=== PATIENT | female | born 1930 | race Caucasian/White ===

== ENCOUNTER 2017-10-30 18:25 | Inpatient (IN) | payer MEDICARE ==
[2017-10-30] VITALS (8 sets, daily range): BP systolic 121–161; BP diastolic 50–118; PULSE 56–64; RESP 22–30; TEMP 98.3–100.2; O2SAT 95–98
[~2017-10-30] VITALS: Ht 162.6 cm; Wt 58.0 kg
[~2017-10-30 18:25] MED LIST: ATEN-102 PO; CYAN1000P IM; FURO20TA PO; GLIM1TAB PO; HYDR-3580 PO; LOVA1TAB47 PO; MULTCAP2 PO; OMEG100037 PO; PLAV75TA PO; RANI150 PO; RIVA10 PO; TEMA15CA PO; VITA20003 PO; Z.0.COMMODE-3:1; Z.0.CPM; Z.0.WALKERFRONT
--- NOTE | 2017-10-30 18:33 | PD ---
HPI Chief Complaint: Respiratory Distress Time Seen by Provider: 18:30 Travel History International Travel<30 days: No Contact w/Intl Traveler<30days: No Traveled to known affect area: No History of Present Illness HPI 87-year-old female came to the emergency room brought in by EMS emergently for respiratory distress. Patient has been sick for couple days. Today they found her laying in her bed and oxygen saturation in low 80s. Patient initially refused to come in but they put her on a BiPAP which improved the oxygen saturation to mid 90s and patient was willing to come at that point. Patient denies of any chest pain. Denies of any coronary artery disease history or cardiac history. Upon arrival she was saturating 93% on the BiPAP by EMS. Patient was awake and once BiPAP was taken out to switch to the hospital BiPAP she was talking and answering questions. Rectal temperature is 100.2. PFSH Past Medical History Narrative Medical List of her past medical, surgical, social and family history reviewed from the nursing note. Hx Anticoagulant Therapy: Yes (PLAVIX) Arthritis: Yes (left hand and left knee) Cancer: No Cardiovascular Problems: Yes (BLOOD CLOT IN RIGHT SHOULDER 2013) High Cholesterol: Yes Cerebrovascular Accident: Yes Coronary Artery Disease: Yes Diabetes: Yes Diminished Hearing: No Endocrine: Yes Gastrointestinal Disorders: Yes GERD: Yes Genitourinary: Yes (ARF ) Hepatitis: No Hiatal Hernia: No Hypertension: Yes Immune Disorder: No Musculoskeletal: Yes (ARTHRITIS) Neurologic: Yes (STROKE 1997) Psychiatric: No Reproductive: No Respiratory: Yes (COPD) Immunizations Current: Yes Thyroid Disease: No Ovarian Cysts: Yes Past Surgical History Abdominal Surgery: No AICD: No Body Medical Devices: TEETH IMPLANTS Cardiac Surgery: Yes (ENDARTERECTOMY) Cholecystectomy: Yes Ear Surgery: No Endocrine Surgery: No Eye Surgery: Yes (CATARACT SX RIGHT EYE) Genitourinary Surgery: Yes (BLADDER SUSPENSION) Gynecologic Surgery: No Joint Replacement: No Oral Surgery: No Pacemaker: No Thoracic Surgery: No Other Surgery: Yes (ANGIOGRAHM) Social History Alcohol Use: Yes (2-3 VODKA DRINKS DAILY) Tobacco Use: Yes Substance Use: No Allergies-Medications (Allergen,Severity, Reaction): Coded Allergies: ciprofloxacin (Unverified Allergy, Severe, SEVERE VAGINAL INFECTION, ) diatrizoate meglumine (Unverified Allergy, Severe, KIDNEY FAILURE, 10/30/17) gadobenic acid (Unverified Allergy, Severe, KIDNEY FAILURE, 10/30/17) gadodiamide (Unverified Allergy, Severe, KIDNEY FAILURE, 10/30/17) gadoteridol (Unverified Allergy, Severe, KIDNEY FAILURE, 10/30/17) iodixanol (Unverified Allergy, Severe, KIDNEY FAILURE, 10/30/17) iohexol (Unverified Allergy, Severe, KIDNEY FAILURE, 10/30/17) cephalexin (Unverified Adverse Reaction, Severe, VAGINAL INFECTION, 10/30/17 ) Comments List of her allergies reviewed from the nursing note. Reported Meds & Prescriptions Reported Meds & Active Scripts Active Narrative Medication List of her home medications reviewed from the nursing note. Review of Systems Except as stated in HPI: all other systems reviewed are Neg Respiratory: Positive: Shortness of Breath Physical Exam Narrative GENERAL: Awake, alert, moderate distress, elderly and frail SKIN: Focused skin assessment warm/dry. HEAD: Atraumatic. Normocephalic. EYES: Pupils equal and round. No scleral icterus. No injection or drainage. ENT: No nasal bleeding or discharge. Mucous membranes pink and moist. NECK: Trachea midline. No JVD. CARDIOVASCULAR: Regular rate and rhythm. No murmur appreciated. RESPIRATORY: Respiratory distress with bilateral crackles all the way up to the apex GASTROINTESTINAL: Abdomen soft, non-tender, nondistended. Hepatic and splenic margins not palpable. MUSCULOSKELETAL: No obvious deformities. No clubbing. No cyanosis. No edema. NEUROLOGICAL: Awake and alert. No obvious cranial nerve deficits. Motor grossly within normal limits. Normal speech. PSYCHIATRIC: Appropriate mood and affect; insight and judgment normal. Data Data Last Documented VS Vital Signs Date Time Temp Pulse Resp B/P (MAP) Pulse Ox O2 Delivery O2 Flow Rate FiO2 10/30/17 20:00 60 27 127/50 (75) 10/30/17 19:30 98 40 10/30/17 18:40 100.2 CPAP Orders Orders Complete Blood Count With Diff (10/30/17 18:31) Comprehensive Metabolic Panel (10/30/17 18:31) B-Type Natriuretic Peptide (10/30/17 18:31) Prothrombin Time / Inr (Pt) (10/30/17 18:31) Magnesium (Mg) (10/30/17 18:31) Troponin I (10/30/17 18:31) Urinalysis - C+S If Indicated (10/30/17 18:31) Blood Culture (10/30/17 18:31) Iv Access Insert/Monitor (10/30/17 18:31) Electrocardiogram (10/30/17 18:31) Ecg Monitoring (10/30/17 18:31) Oximetry (10/30/17 18:31) Oxygen Administration (10/30/17 18:31) Chest, Single Ap (10/30/17 18:31) Sodium Chloride 0.9% Flush (Ns Flush) (10/30/17 18:45) Resp Bipap / Cpap Non Invas Vt (10/30/17 18:31) Lactic Acid Sepsis Protocol (10/30/17 18:39) Sodium Chlor 0.9% 1000 Ml Inj (Ns 1000 M (10/30/17 19:00) ^ Straight Catheter (10/30/17 18:47) Piperacil-Tazo 4.5 Gm Premix (Zosyn 4.5 (10/30/17 19:00) Vancomycin Inj (Vancomycin Inj) (10/30/17 19:00) Urine Culture (10/30/17 18:50) Admit Order (Ed Use Only) (10/30/17 ) Labs Laboratory Tests Test 10/30/17 18:37 10/30/17 18:50 White Blood Count 12.4 TH/MM3 Red Blood Count 3.87 MIL/MM3 Hemoglobin 13.4 GM/DL Hematocrit 40.3 % Mean Corpuscular Volume 104.1 FL Mean Corpuscular Hemoglobin 34.7 PG Mean Corpuscular Hemoglobin Concent 33.3 % Red Cell Distribution Width 13.3 % Platelet Count 223 TH/MM3 Mean Platelet Volume 8.9 FL Neutrophils (%) (Auto) 87.7 % Lymphocytes (%) (Auto) 3.4 % Monocytes (%) (Auto) 8.8 % Eosinophils (%) (Auto) 0.0 % Basophils (%) (Auto) 0.1 % Neutrophils # (Auto) 10.8 TH/MM3 Lymphocytes # (Auto) 0.4 TH/MM3 Monocytes # (Auto) 1.1 TH/MM3 Eosinophils # (Auto) 0.0 TH/MM3 Basophils # (Auto) 0.0 TH/MM3 CBC Comment DIFF FINAL Differential Comment Prothrombin Time 10.3 SEC Prothromb Time International Ratio 1.0 RATIO Blood Urea Nitrogen 61 MG/DL Creatinine 1.84 MG/DL Random Glucose 191 MG/DL Total Protein 7.0 GM/DL Albumin 2.4 GM/DL Calcium Level 9.2 MG/DL Magnesium Level 2.8 MG/DL Alkaline Phosphatase 119 U/L Aspartate Amino Transf (AST/SGOT) 13 U/L Alanine Aminotransferase (ALT/SGPT) 12 U/L Total Bilirubin 0.4 MG/DL Sodium Level 135 MEQ/L Potassium Level 5.0 MEQ/L Chloride Level 98 MEQ/L Carbon Dioxide Level 30.5 MEQ/L Anion Gap 7 MEQ/L Estimat Glomerular Filtration Rate 26 ML/MIN Lactic Acid Level 1.9 mmol/L Troponin I 0.04 NG/ML B-Type Natriuretic Peptide 2665 PG/ML Urine Color YELLOW Urine Turbidity HAZY Urine pH 5.5 Urine Specific [place] 1.023 Urine Protein 100 mg/dL Urine Glucose (UA) NEG mg/dL Urine Ketones NEG mg/dL Urine Occult Blood NEG Urine Nitrite NEG Urine Bilirubin NEG Urine Urobilinogen LESS THAN 2.0 MG/DL Urine Leukocyte Esterase NEG Urine RBC LESS THAN 1 /hpf Urine WBC 2 /hpf Urine Squamous Epithelial Cells 1 /hpf Urine Amorphous Sediment RARE Urine Bacteria OCC /hpf Urine Hyaline Casts 11 /lpf Urine Mucus FEW /lpf Microscopic Urinalysis Comment CATH-CULTURE IND MDM Medical Decision Making Medical Screen Exam Complete: Yes Emergency Medical Condition: Yes Medical Record Reviewed: Yes Interpretation(s) Twelve-lead EKG was reviewed by me. Normal sinus rhythm, motion artifacts, peaked T waves. Heart rate of 62 bpm. Differential Diagnosis Pneumonia, congestive heart failure, pulmonary edema Narrative Course 6:59 PM patient has been started on BiPAP again. Awaiting for blood test results and a chest x-ray. Given the rectal temperature I have ordered IV fluid bolus 1. I will give her a dose of Zosyn and vancomycin as well. He says been signed over to the oncoming ER physician. Critical Care Narrative Aggregate critical care time was 30 minutes. Time to perform other separately billable procedures was not included in the critical care time. My time did not include minutes spent treating any other patients simultaneously or on activities that did not directly contribute to the patient's treatment. The services I provided to this patient were to treat and/or prevent clinically significant deterioration that could result in: Respiratory distress, BiPAP, sepsis, sepsis protocol I provided critical care services requiring my management, as noted below: Chart data review, documentation time, medication orders and management, vital sign assessments/reviewing monitor data, ordering and reviewing lab tests, ordering and interpreting/reviewing x-rays and diagnostic studies, care of the patient and discussion of the patient with the admitting physicians. Procedures EKG Prior to Arrival: Yes Scripts [LORazepam INJ] 2 MG/ML INJ No Conflict Check 0.5 MG IV PUSH Q4H Y for agitation Prov: Cheikh Looney DO 10/31/17 Morphine Sulfate (Morphine Sulfate) 2 Mg/Ml Syringe 2 MG IV PUSH Q3H Y for pain 5-10 for 3 Days, SYRINGE Prov: Cheikh Looney DO 10/31/17 [place] Francois MD Oct 30, 2017 18:33
[2017-10-30] MEDS ORDERED: SODIUM CHLORIDE 0.9% FLUSH 10 ML FLUSH IVF PRN (18:45)
[2017-10-30 18:55] LABS: AUTOMATED NEUTROPHIL # 10.8 TH/MM3 (1.8-7.7); BASOPHIL % 0.1 % (0.0-2.0); HEMATOCRIT 40.3 % (35.0-46.0); HEMOGLOBIN 13.4 GM/DL (11.6-15.3); LYMPH % 3.4 % (9.0-44.0); LYMPHOCYTE # 0.4 TH/MM3 (1.0-4.8); MEAN CELL VOLUME 104.1 FL (80.0-100.0); MEAN CORPUSCULAR HEMOGLOBIN 34.7 PG (27.0-34.0); MEAN CORPUSCULAR HGB CONC 33.3 % (32.0-36.0); MEAN PLATELET VOLUME 8.9 FL (7.0-11.0); MONO % 8.8 % (0.0-8.0); MONOCYTE # 1.1 TH/MM3 (0-0.9); NEUT % 87.7 % (16.0-70.0); PLATELET COUNT 223 TH/MM3 (150-450); RED BLOOD COUNT 3.87 MIL/MM3 (4.00-5.30); RED CELL DISTRIBUTION WIDTH 13.3 % (11.6-17.2); WHITE BLOOD COUNT 12.4 TH/MM3 (4.0-11.0)
[2017-10-30] MEDS ORDERED: VANCOMYCIN INJ 1,000 MG in SODIUM CHLOR 0.9% 250 ML INJ 250 ML IV ONE (19:00)
[2017-10-30] MEDS ORDERED: VITA200013 (19:00)
[2017-10-30] MEDS ORDERED: ATEN50TA PO (19:00)
[2017-10-30] MEDS ORDERED: FURO20TA PO (19:00)
[2017-10-30] MEDS ORDERED: MULT1TAB61 (19:00)
[2017-10-30] MEDS ORDERED: NORC5TAB PO (19:00)
[2017-10-30] MEDS ORDERED: FISHCAP4 PO (19:00)
[2017-10-30] MEDS ORDERED: PIPERACIL-TAZO 4.5 GM PREMIX 100 ML IV ONE (19:00)
[2017-10-30] MEDS ORDERED: PLAV75TA29 PO (19:00)
[2017-10-30] MEDS ORDERED: GLIM1TAB PO (19:00)
[2017-10-30] MEDS ORDERED: SODIUM CHLOR 0.9% 1000 ML INJ 1,000 ML IV ONE (19:00)
[2017-10-30] MEDS ORDERED: VITA10002 PO (19:00)
[2017-10-30] MEDS ORDERED: VITA250C3 CHEW (19:00)
[2017-10-30 19:02] LABS: PROTHROMBIN TIME - PATIENT 10.3 SEC (9.8-11.6)
[2017-10-30 19:14] LABS: ALBUMIN 2.4 GM/DL (3.4-5.0); AST (GOT) 13 U/L (15-37); BICARBONATE 30.5 MEQ/L (21.0-32.0); BLOOD UREA NITROGEN 61 MG/DL (7-18); CALCIUM 9.2 MG/DL (8.5-10.1); CHLORIDE 98 MEQ/L (98-107); CREATININE 1.84 MG/DL (0.50-1.00); GLOMERULAR FILTRATION RATE 26 ML/MIN (>89); GLUCOSE,RANDOM 191 MG/DL (74-106); MAGNESIUM 2.8 MG/DL (1.5-2.5); SODIUM (NA) 135 MEQ/L (136-145)
[2017-10-30 19:15] LABS: ALT (GPT) 12 U/L (10-53)
--- NOTE | 2017-10-30 19:15 | RADRPT ---
EXAM DATE/TIME: 10/30/2017 19:02 [facility] COMPARISON: Report only CHEST PA & LAT, October 09, 2013, 8:32. INDICATIONS : Short of breath MEDICAL HISTORY : Chronic obstructive pulmonary disease. SURGICAL HISTORY : None. ENCOUNTER: Initial ACUITY: 1 day PAIN SCORE: 0/10 LOCATION: chest FINDINGS: One area of dense consolidation is seen at the right lung base and probably with a small pleural effu rudy. On the left there is trace basilar atelectasis. No pneumothorax seen. Heart size within normal limits. CONCLUSION: 1. Right base pneumonia. Medical management and followup two-view study in a few weeks recommended to confirm resolution. 2. Trace left base atelectasis. Hamilton Ibrahim MD on October 30, 2017 at 19:11 Board Certified Radiologist. This report was verified electronically.
[2017-10-30 19:19] LABS: ALKALINE PHOSPHATASE 119 U/L (45-117); TOTAL BILIRUBIN ADULT 0.4 MG/DL (0.2-1.0); TROPONIN I 0.04 NG/ML (0.02-0.05)
[2017-10-30 19:47] LABS: AMORPHOUS SEDIMENT, URINE RARE; BACTERIA, URINE OCC /hpf; BILIRUBIN, URINE NEG (NEG); BLOOD, URINE NEG (NEG); GLUCOSE,URINE NEG (NEG); HYALINE CAST, URINE 11 /lpf (RARE); KETONE, URINE NEG (NEG); MUCUS URINE FEW /lpf (OCC); NITRITE,URINE NEG (NEG); PH, URINE 5.5 (5.0-8.5); SQUAMOUS EPITHELIAL CELL URINE 1 /hpf (0-5); URINE COLOR YELLOW (YELLW/STRAW); URINE LEUKOCYTE ESTERASE NEG (NEG)
--- NOTE | 2017-10-30 20:17 | PD ---
Physical Exam Narrative Patient signed out to me by Dr. Francois. Please see her documentation for complete details. Briefly, patient is an 87 year old female who comes in complaining of difficulty breathing. Per daughter, she has been sick for the past few days. Per EMS, she had low oxygen saturation on room air and was started on CPAP. She was continued on CPAP here. She is breathing comfortably. Heart is RRR. Crackles present, mostly on the right. Data Data Last Documented VS Vital Signs Date Time Temp Pulse Resp B/P (MAP) Pulse Ox O2 Delivery O2 Flow Rate FiO2 10/30/17 20:00 60 27 127/50 (75) 10/30/17 19:30 98 40 10/30/17 18:40 100.2 CPAP Orders Orders Complete Blood Count With Diff (10/30/17 18:31) Comprehensive Metabolic Panel (10/30/17 18:31) B-Type Natriuretic Peptide (10/30/17 18:31) Prothrombin Time / Inr (Pt) (10/30/17 18:31) Magnesium (Mg) (10/30/17 18:31) Troponin I (10/30/17 18:31) Urinalysis - C+S If Indicated (10/30/17 18:31) Blood Culture (10/30/17 18:31) Iv Access Insert/Monitor (10/30/17 18:31) Electrocardiogram (10/30/17 18:31) Ecg Monitoring (10/30/17 18:31) Oximetry (10/30/17 18:31) Oxygen Administration (10/30/17 18:31) Chest, Single Ap (10/30/17 18:31) Sodium Chloride 0.9% Flush (Ns Flush) (10/30/17 18:45) Resp Bipap / Cpap Non Invas Vt (10/30/17 18:31) Lactic Acid Sepsis Protocol (10/30/17 18:39) Sodium Chlor 0.9% 1000 Ml Inj (Ns 1000 M (10/30/17 19:00) ^ Straight Catheter (10/30/17 18:47) Piperacil-Tazo 4.5 Gm Premix (Zosyn 4.5 (10/30/17 19:00) Vancomycin Inj (Vancomycin Inj) (10/30/17 19:00) Urine Culture (4/8/18 18:50) Admit Order (Ed Use Only) (10/30/17 ) Labs Laboratory Tests Test 10/30/17 18:37 10/30/17 18:50 White Blood Count 12.4 TH/MM3 Red Blood Count 3.87 MIL/MM3 Hemoglobin 13.4 GM/DL Hematocrit 40.3 % Mean Corpuscular Volume 104.1 FL Mean Corpuscular Hemoglobin 34.7 PG Mean Corpuscular Hemoglobin Concent 33.3 % Red Cell Distribution Width 13.3 % Platelet Count 223 TH/MM3 Mean Platelet Volume 8.9 FL Neutrophils (%) (Auto) 87.7 % Lymphocytes (%) (Auto) 3.4 % Monocytes (%) (Auto) 8.8 % Eosinophils (%) (Auto) 0.0 % Basophils (%) (Auto) 0.1 % Neutrophils # (Auto) 10.8 TH/MM3 Lymphocytes # (Auto) 0.4 TH/MM3 Monocytes # (Auto) 1.1 TH/MM3 Eosinophils # (Auto) 0.0 TH/MM3 Basophils # (Auto) 0.0 TH/MM3 CBC Comment DIFF FINAL Differential Comment Prothrombin Time 10.3 SEC Prothromb Time International Ratio 1.0 RATIO Blood Urea Nitrogen 61 MG/DL Creatinine 1.84 MG/DL Random Glucose 191 MG/DL Total Protein 7.0 GM/DL Albumin 2.4 GM/DL Calcium Level 9.2 MG/DL Magnesium Level 2.8 MG/DL Alkaline Phosphatase 119 U/L Aspartate Amino Transf (AST/SGOT) 13 U/L Alanine Aminotransferase (ALT/SGPT) 12 U/L Total Bilirubin 0.4 MG/DL Sodium Level 135 MEQ/L Potassium Level 5.0 MEQ/L Chloride Level 98 MEQ/L Carbon Dioxide Level 30.5 MEQ/L Anion Gap 7 MEQ/L Estimat Glomerular Filtration Rate 26 ML/MIN Lactic Acid Level 1.9 mmol/L Troponin I 0.04 NG/ML B-Type Natriuretic Peptide 2665 PG/ML Urine Color YELLOW Urine Turbidity HAZY Urine pH 5.5 Urine Specific [place] 1.023 Urine Protein 100 mg/dL Urine Glucose (UA) NEG mg/dL Urine Ketones NEG mg/dL Urine Occult Blood NEG Urine Nitrite NEG Urine Bilirubin NEG Urine Urobilinogen LESS THAN 2.0 MG/DL Urine Leukocyte Esterase NEG Urine RBC LESS THAN 1 /hpf Urine WBC 2 /hpf Urine Squamous Epithelial Cells 1 /hpf Urine Amorphous Sediment RARE Urine Bacteria OCC /hpf Urine Hyaline Casts 11 /lpf Urine Mucus FEW /lpf Microscopic Urinalysis Comment CATH-CULTURE IND MDM Supervised Visit with [facility]A: No Narrative Course Labs show an elevated white blood cell count 12.4. BNP is elevated to 2665. Patient was given antibiotics. Chest x-ray concerning for a large right-sided pneumonia. Patient tried off of BiPAP, but continued to be short of breath, so she was placed back on BiPAP. Admitted for further management. Diagnosis Primary Impression: Pneumonia Qualified Codes: J18.1 - Lobar pneumonia, unspecified organism Additional Impression: CHF exacerbation Qualified Codes: I50.9 - Heart failure, unspecified Admitting Information Admitting Physician Requests: Admit Sarah Nesbitt MD Oct 30, 2017 20:17
[2017-10-30] MEDS ORDERED: DEXTROSE 50% IN WATER 50 ML VIAL(D50) IV PUSH PRN (21:45)
[2017-10-30] MEDS ORDERED: GLUCAGON 1 MG/ML VIAL OTHER PRN (21:45)
[2017-10-30] MEDS ORDERED: RESP: ALBUTEROL 2.5 MG/IPRATROPIUM 0.5 MG NEB (SCH) NEB STA (21:48)
--- NOTE | 2017-10-30 21:58 | HHI.HP ---
HPI Service [facility] Hospitalists Primary Care Physician Juan Manuel Elizabeth MD Admission Diagnosis pneumonia Chief Complaint: pneumonia/copd Travel History International Travel<30 Days: No Contact w/Intl Traveler <30 Da: No Traveled to Known Affected Are: No History of Present Illness Pt is 87 yo with copd, dm2, ckd 3 with recent fall in [place] and evaluation in "2 ED's per daughter" w/out admission. She reports falling while at a hotel getting into bed and injuring her left scapula, head, and buttock. She has been using norco with minimal relief. Now over past 2 days more coughing and fever. Alot of respiratory distress today and brought in from home on EMS with bipap. cxr shows right lung pneumonia and given vanco/zosyn and ivf. When I arrive pt is off bipap and still with labored breathing. daughter is at bedside and she says the bipap was helping when on. She clearly requesting DNR status and daughter is in agreement. She is asking for morphine for pain. Daughter denies aspiration event. Daughter says she has been delirious on/off over past few days. Review of Systems Other sob recent fall. Past Family Social History Past Medical History dm2 hx contrast nephropathy/atn ckd 3 htn copd cad axillary artery thrombosis/tpa/embolectomy gerd remote cva left tka cataract surgery [facility] surgery Reported Medications Vitamin B-12 (Cyanocobalamin) 1,000 Mcg Tab 1,000 Mcg PO DAILY Vitamin C (Ascorbic Acid) 250 Mg Chew 250 Mg CHEW BID Fish Oil + D3 (Fish Oil-Cholecalciferol) 1,200-1,000 Mg-Unit Cap 1 Cap PO DAILY Vitamin D (Cholecalciferol) 2,000 Unit Cap Furosemide 20 Mg Tab 20 Mg PO DAILY Datil (Hydrocodone-Acetaminophen) 5 Mg-325 Mg Tab 1 Tab PO Q4H PRN Centrum Silver Women Tablet (Multivit-Min/Iron/Folic/Lutein) 8 Mg Iron-400 Mcg- 300 Mcg Tablet Plavix (Clopidogrel Bisulfate) 75 Mg Tab 75 Mg PO DAILY Glimepiride 1 Mg Tab 1 Mg PO BID Take with breakfast or first main meal Atenolol 50 Mg Tab 50 Mg PO DAILY Allergies: Coded Allergies: ciprofloxacin (Unverified Allergy, Severe, SEVERE VAGINAL INFECTION, ) diatrizoate meglumine (Unverified Allergy, Severe, KIDNEY FAILURE, 10/30/17) gadobenic acid (Unverified Allergy, Severe, KIDNEY FAILURE, 10/30/17) gadodiamide (Unverified Allergy, Severe, KIDNEY FAILURE, 10/30/17) gadoteridol (Unverified Allergy, Severe, KIDNEY FAILURE, 10/30/17) iodixanol (Unverified Allergy, Severe, KIDNEY FAILURE, 10/30/17) iohexol (Unverified Allergy, Severe, KIDNEY FAILURE, 10/30/17) cephalexin (Unverified Adverse Reaction, Severe, VAGINAL INFECTION, 10/30/17 ) Family History nc Social History no etoh/tob Physical Exam Vital Signs labored breathing oriented following commands heart reg lung crackles bases with shante wheezing ext no edema Vital Signs Date Time Temp Pulse Resp B/P (MAP) Pulse Ox O2 Delivery O2 Flow Rate FiO2 10/30/17 21:00 56 26 125/58 (80) 97 Nasal Cannula 2.00 10/30/17 21:00 26 97 Nasal Cannula 2.00 10/30/17 20:53 100 Nasal Cannula 2.00 10/30/17 20:30 98 Nasal Cannula 3.00 10/30/17 20:00 60 27 127/50 (75) 10/30/17 19:30 98 40 10/30/17 19:01 100 10/30/17 18:40 100.2 62 22 159/68 (98) 96 CPAP 10/30/17 18:38 96 CPAP 10/30/17 18:34 63 24 96 CPAP 10/30/17 18:29 98.3 64 22 161/118 (132) 97 10/30/17 18:27 95 100 Laboratory Laboratory Tests Test 10/30/17 18:37 10/30/17 18:50 White Blood Count 12.4 Red Blood Count 3.87 Hemoglobin 13.4 Hematocrit 40.3 Mean Corpuscular Volume 104.1 Mean Corpuscular Hemoglobin 34.7 Mean Corpuscular Hemoglobin Concent 33.3 Red Cell Distribution Width 13.3 Platelet Count 223 Mean Platelet Volume 8.9 Neutrophils (%) (Auto) 87.7 Lymphocytes (%) (Auto) 3.4 Monocytes (%) (Auto) 8.8 Eosinophils (%) (Auto) 0.0 Basophils (%) (Auto) 0.1 Neutrophils # (Auto) 10.8 Lymphocytes # (Auto) 0.4 Monocytes # (Auto) 1.1 Eosinophils # (Auto) 0.0 Basophils # (Auto) 0.0 CBC Comment DIFF FINAL Differential Comment Prothrombin Time 10.3 Prothromb Time International Ratio 1.0 Blood Urea Nitrogen 61 Creatinine 1.84 Random Glucose 191 Total Protein 7.0 Albumin 2.4 Calcium Level 9.2 Magnesium Level 2.8 Alkaline Phosphatase 119 Aspartate Amino Transf (AST/SGOT) 13 Alanine Aminotransferase (ALT/SGPT) 12 Total Bilirubin 0.4 Sodium Level 135 Potassium Level 5.0 Chloride Level 98 Carbon Dioxide Level 30.5 Anion Gap 7 Estimat Glomerular Filtration Rate 26 Lactic Acid Level 1.9 Troponin I 0.04 B-Type Natriuretic Peptide 2665 Urine Color YELLOW Urine Turbidity HAZY Urine pH 5.5 Urine Specific [place] 1.023 Urine Protein 100 Urine Glucose (UA) NEG Urine Ketones NEG Urine Occult Blood NEG Urine Nitrite NEG Urine Bilirubin NEG Urine Urobilinogen LESS THAN 2.0 Urine Leukocyte Esterase NEG Urine RBC LESS THAN 1 Urine WBC 2 Urine Squamous Epithelial Cells 1 Urine Amorphous Sediment RARE Urine Bacteria OCC Urine Hyaline Casts 11 Urine Mucus FEW Microscopic Urinalysis Comment CATH-CULTURE IND Date/Time Source Procedure Growth Status 10/30/17 18:37 Blood Peripheral Aerobic Blood Culture Pending Received 10/30/17 18:37 Blood Peripheral Anaerobic Blood Culture Pending Received 10/30/17 18:50 Urine Catheterized Urine Urine Culture Pending Received Result Diagram: 10/30/17183610/30/171836 Caprini VTE Risk Assessment Caprini VTE Risk Assessment: Mod/High Risk (score >= 2) Caprini Risk Assessment Model Point Value = 1 Point Value = 2 Point Value = 3 Point Value = 5 Age 41-60 Minor surgery BMI > 25 kg/m2 Swollen legs Varicose veins or History of unexplained or recurrent spontaneous Oral contraceptives or hormone replacement Sepsis (< 1 month) Serious lung disease, including pneumonia (< 1 month) Abnormal pulmonary function Acute myocardial infarction Congestive heart failure (< 1 month) History of inflammatory bowel disease Medical patient at bed rest Age 61-74 Arthroscopic surgery Major open surgery (> 45 min) Laparoscopic surgery (> 45 min) Malignancy Confined to bed (> 72 hours) Immobilizing plaster cast Central venous access Age >= 75 History of VTE Family history of VTE Factor V Leiden Prothrombin [id number] Lupus anticoagulant Anticardiolipin antibodies Elevated serum homocysteine Heparin-induced thrombocytopenia Other congenital or acquired thrombophilia Stroke (< 1 month) Elective arthroplasty Hip, pelvis, or leg fracture Acute spinal cord injury (< 1 month) Prophylaxis Regimen Total Risk Factor Score Risk Level Prophylaxis Regimen 0-1 Low Early ambulation 2 Moderate Order ONE of the following: *Sequential Compression Device (SCD) *Heparin 5000 units SQ BID 3-4 Higher Order ONE of the following medications: *Heparin 5000 units SQ TID *Enoxaparin/Lovenox 40 mg SQ daily (WT < 150 kg, CrCl > 30 mL/min) *Enoxaparin/Lovenox 30 mg SQ daily (WT < 150 kg, CrCl > 10-29 mL/min) *Enoxaparin/Lovenox 30 mg SQ BID (WT < 150 kg, CrCl > 30 mL/min) AND/OR *Sequential Compression Device (SCD) 5 or more Highest Order ONE of the following medications: *Heparin 5000 units SQ TID (Preferred with Epidurals) *Enoxaparin/Lovenox 40 mg SQ daily (WT < 150 kg, CrCl > 30 mL/min) *Enoxaparin/Lovenox 30 mg SQ daily (WT < 150 kg, CrCl > 10-29 mL/min) *Enoxaparin/Lovenox 30 mg SQ BID (WT < 150 kg, CrCl > 30 mL/min) AND *Sequential Compression Device (SCD) Assessment and Plan Problem List: (1) Pneumonia ICD Codes: J18.9 - Pneumonia, unspecified organism Status: Acute Plan: 1. acute right lung pneumonia 2. copd exacerbation 3. severe hypoxia and respiratory distress from copd/pna 4. ckd 3 5. dm2 6. htn 7. recent fall at Hotel in [place]. plan long talk with pt/daughter. she is dnr will place back on bipap now. solumedrol/scheduled nebs for copd cont zosyn for right lung pna can get swallow eval IVF given by ED. hold further ivf for now. cont home OHA and ssi coverage cont home bp meds and plavix guarded prognosis. (2) COPD (chronic obstructive pulmonary disease) ICD Codes: J44.9 - COPD (chronic obstructive pulmonary disease) Status: Acute (3) CKD (chronic kidney disease), stage III ICD Codes: N18.3 - Chronic kidney disease, stage 3 (moderate) Status: Chronic (4) CAD (coronary artery disease) ICD Codes: I25.10 - CAD (coronary artery disease) Status: Chronic (5) DM type 2 (diabetes mellitus, type 2) ICD Codes: E11.9 - DM type 2 (diabetes mellitus, type 2) Status: Chronic (6) HTN (hypertension) ICD Codes: I10 - HTN (hypertension) Status: Chronic Physician Certification 2 Midnight Certification Type: Admission for Inpatient Services Order for Inpatient Services 3The services are ordered in accordance with Medicare regulations or non- Medicare payer requirements, as applicable. In the case of services not specified as inpatient-only, they are appropriately provided as inpatient services in accordance with the 2-midnight benchmark. Estimated LOS (days): 3 3 days is the estimated time the patient will need to remain in the hospital, assuming treatment plan goals are met and no additional complications. Post-Hospital Plan: Not yet determined Paresh Bennett MD Oct 30, 2017 21:58
[2017-10-30] MEDS ORDERED: ACETAMINOPHEN/HYDROcodone 325 MG/10 MG TAB PO PRN (22:00)
[2017-10-30] MEDS ORDERED: ONDANSETRON HCL 4 MG/2 ML VIAL IV PUSH PRN (22:00)
[2017-10-30] MEDS ORDERED: ACETAMINOPHEN 325 MG TAB PO PRN (22:00)
[2017-10-30] MEDS ORDERED: MORPHINE SULFATE 2 MG/ML SYRINGE IV PUSH ONE (22:00)
[2017-10-30] MEDS ORDERED: SODIUM CHLORIDE FLUSH PRN IV FLUSH (22:00)
[2017-10-30] MEDS ORDERED: RESP: ALBUTEROL 2.5 MG/IPRATROPIUM 0.5 MG NEB (PRN) NEB (22:00)
[2017-10-30] MEDS ORDERED: methylPREDNISolone SOD SUCC 125 MG/2 ML VIAL IV PUSH ONE (22:00)
[2017-10-30] MEDS: RESP: ALBUTEROL 2.5 MG/IPRATROPIUM 0.5 MG NEB (SCH) NEB (23:39)
[2017-10-31] VITALS (25 sets, daily range): BP systolic 104–135; BP diastolic 43–65; PULSE 48–130; RESP 20–24; TEMP 97.6–98.9; O2SAT 90–96
[2017-10-31] MEDS: MORPHINE SULFATE 2 MG/ML SYRINGE IV PUSH PRN ×4 (02:16→15:34)
[2017-10-31] MEDS: RESP: ALBUTEROL 2.5 MG/IPRATROPIUM 0.5 MG NEB (SCH) NEB ×4 (04:05→15:53)
[2017-10-31] MEDS: methylPREDNISolone SOD SUCC 125 MG/2 ML VIAL IV PUSH SCH ×3 (05:04→17:40)
[2017-10-31] MEDS: PIPERACIL-TAZO 3.375 GM PREMIX 50 ML IV SCH ×2 (05:05→12:29)
--- NOTE | 2017-10-31 05:16 | RADRPT ---
EXAM DATE/TIME: 10/31/2017 04:25 [facility] COMPARISON: CHEST SINGLE AP, October 30, 2017, 19:02. INDICATIONS : Shortness of breath,possible pulmonary disease. MEDICAL HISTORY : Chronic obstructive pulmonary disease. SURGICAL HISTORY : None. ENCOUNTER: Subsequent ACUITY: 2 days PAIN SCORE: 0/10 LOCATION: Bilateral chest FINDINGS: A single view of the chest demonstrates worsening right lung density with now almost complete opacifi cation right hemithorax. Minimal left basilar density. Heart mildly enlarged. Osseous structures are intact. CONCLUSION: 1. Worsening right lung density with almost complete opacification right hemithorax. 2. Minimal left basilar density. Ector Smith MD on October 31, 2017 at 5:14 Board Certified Radiologist. This report was verified electronically.
[2017-10-31 07:00] LABS: AUTOMATED NEUTROPHIL # 8.3 TH/MM3 (1.8-7.7); BASOPHIL % 0.2 % (0.0-2.0); HEMATOCRIT 38.2 % (35.0-46.0); HEMOGLOBIN 12.8 GM/DL (11.6-15.3); LYMPH % 4.5 % (9.0-44.0); LYMPHOCYTE # 0.4 TH/MM3 (1.0-4.8); MEAN CELL VOLUME 103.1 FL (80.0-100.0); MEAN CORPUSCULAR HEMOGLOBIN 34.6 PG (27.0-34.0); MEAN CORPUSCULAR HGB CONC 33.6 % (32.0-36.0); MONO % 5.3 % (0.0-8.0); MONOCYTE # 0.5 TH/MM3 (0-0.9); PLATELET COUNT 205 TH/MM3 (150-450); RED BLOOD COUNT 3.71 MIL/MM3 (4.00-5.30); RED CELL DISTRIBUTION WIDTH 13.3 % (11.6-17.2); WHITE BLOOD COUNT 9.2 TH/MM3 (4.0-11.0)
[2017-10-31 07:05] LABS: BICARBONATE 29.8 MEQ/L (21.0-32.0); CALCIUM 9.2 MG/DL (8.5-10.1); CREATININE 2.16 MG/DL (0.50-1.00)
[2017-10-31] MEDS: INSULIN ASPART SUPPLEMENTAL SCALE SQ SCH ×3 (08:00→17:00)
[2017-10-31] MEDS ORDERED: NON-FORMULARY DRUG (Fish Oil-Cholecalciferol (Fish Oil + D3) 1 CAP) PO SCH (09:00)
[2017-10-31] MEDS ORDERED: GLIMEPIRIDE 1 MG TAB PO SCH (09:00)
[2017-10-31] MEDS ORDERED: CLOPIDOGREL 75 MG TAB PO SCH (09:00)
[2017-10-31] MEDS ORDERED: ATENOLOL 50 MG TAB PO SCH (09:00)
[2017-10-31] MEDS ORDERED: CYANOCOBALAMIN 1,000 MCG TAB PO SCH (09:00)
[2017-10-31] MEDS ORDERED: SODIUM CHLORIDE FLUSH BID IV FLUSH SCH (09:00)
[2017-10-31] MEDS ORDERED: FUROSEMIDE 20 MG TAB PO SCH (09:00)
[2017-10-31] MEDS ORDERED: ASCORBIC ACID 500 MG TAB PO SCH (09:00)
[2017-10-31] MEDS: SODIUM CHLOR 0.9% 250 ML INJ 250 ML IV SCH ×2 (11:17→17:34)
--- NOTE | 2017-10-31 13:04 | HHI.PR ---
Subjective Remarks agonal respirations. Nursing reports pt is agitated at times. Objective Vitals Vital Signs Date Time Temp Pulse Resp B/P (MAP) Pulse Ox O2 Delivery O2 Flow Rate FiO2 10/31/17 11:30 95 Simple Mask 7.00 10/31/17 11:30 98.4 55 24 113/53 (73) 96 10/31/17 10:40 22 10/31/17 10:39 95 Simple Mask 10.00 10/31/17 10:00 56 10/31/17 09:00 52 10/31/17 08:00 48 10/31/17 07:39 95 BiPAP 45 10/31/17 07:36 97.6 51 22 126/56 (79) 94 10/31/17 07:36 95 45 10/31/17 07:00 49 10/31/17 07:00 94 Bi-Pap 10/31/17 06:00 56 10/31/17 05:00 54 10/31/17 04:12 95 45 10/31/17 04:00 98.9 51 22 118/52 (74) 94 10/31/17 04:00 Bi-Pap 10/31/17 04:00 53 10/31/17 03:00 55 10/31/17 02:00 50 10/31/17 01:05 10/31/17 01:00 Bi-Pap 10/31/17 01:00 53 10/31/17 01:00 98.8 53 20 104/43 (63) 91 10/31/17 00:56 90 40 10/31/17 00:30 95 6.00 10/30/17 22:02 BiPAP 10/30/17 22:00 97 42 10/30/17 22:00 56 30 121/66 (84) 96 BiPAP 40 10/30/17 21:00 56 26 125/58 (80) 97 Nasal Cannula 2.00 10/30/17 21:00 26 97 Nasal Cannula 2.00 10/30/17 20:53 100 Nasal Cannula 2.00 10/30/17 20:30 98 Nasal Cannula 3.00 10/30/17 20:00 60 27 127/50 (75) 10/30/17 19:30 98 40 10/30/17 19:01 100 10/30/17 18:40 100.2 62 22 159/68 (98) 96 CPAP 10/30/17 18:38 96 CPAP 10/30/17 18:34 63 24 96 CPAP 10/30/17 18:29 98.3 64 22 161/118 (132) 97 10/30/17 18:27 95 100 Result Diagram: 10/31/17 0620 10/31/17 0620 Imaging Last Impressions Chest X-Ray 10/31/17 0600 Signed Impressions: Service Date/Time: Tuesday, October 31, 2017 04:25 - CONCLUSION: 1. Worsening right lung density with almost complete opacification right hemithorax. 2. Minimal left basilar density. Ector Smith MD Objective Remarks GENERAL: opens eyes to voice and speaks a few words CARDIOVASCULAR: Regular rate and rhythm without murmurs, gallops, or rubs. RESPIRATORY: poor air movement. Use of accessory muscles of respiration GASTROINTESTINAL: Abdomen soft, non-tender, nondistended. Normal active bowel sounds MUSCULOSKELETAL: Extremities without clubbing, cyanosis, or edema. NEURO: Alert & Oriented x4 to person, place, time, situation. Moves all ext x4 A/P Problem List: (1) Pneumonia ICD Codes: J18.9 - Pneumonia, unspecified organism Status: Acute Plan: 1. acute right lung pneumonia 2. copd exacerbation 3. severe hypoxia and respiratory distress from copd/pna 4. ckd 3 5. dm2 6. htn 7. recent fall at [place] in [place]. - case d/w daughters at length - CXR --> deteriorating - daughter request Hospice. I agree. - After meeting with hospice, [facility] (2) COPD (chronic obstructive pulmonary disease) ICD Codes: J44.9 - COPD (chronic obstructive pulmonary disease) Status: Acute (3) CKD (chronic kidney disease), stage III ICD Codes: N18.3 - Chronic kidney disease, stage 3 (moderate) Status: Chronic (4) CAD (coronary artery disease) ICD Codes: I25.10 - CAD (coronary artery disease) Status: Chronic (5) DM type 2 (diabetes mellitus, type 2) ICD Codes: E11.9 - DM type 2 (diabetes mellitus, type 2) Status: Chronic (6) HTN (hypertension) ICD Codes: I10 - HTN (hypertension) Status: Chronic Cheikh Looney DO Oct 31, 2017 13:03
--- NOTE | 2017-10-31 15:29 | EKG ---
Date Performed: 10/30/2017 Time Performed: 18:35:29 PTAGE: 87 years EKG: Sinus rhythm POSSIBLE LEFT ATRIAL ENLARGEMENT POSSIBLE LEFT VENTRICULAR HYPERTROPHY Since the previous tracing, n o significant change noted ABNORMAL ECG PREVIOUS TRACING : 10/02/2013 19.44 DOCTOR: Kapil Greene Interpretating Date/Time 10/31/2017 15:22:06
[2017-10-31] MEDS ORDERED: LORazepam 2 MG/ML VIAL IV PUSH PRN (16:45)
[2017-10-31] MEDS ORDERED: MORP10IN9 IV PUSH (17:11)
[2017-10-31] MEDS ORDERED: LORazepam INJ IV PUSH (17:11)
== END 2017-10-31 18:45 | disposition hospice, inpatient (51) | DRG 194 ==
LOC: NEPC 18:25 → NEDA 20:25 → HCIS 10-31 00:49
PROVIDERS: ADMIT Hospitalist; ATTEND Hospitalist
DX: J18.9 Pneumonia, unspecified organism (principal); I13.0 Hypertensive heart and chronic kidney disease with heart failure and stage 1 through stage 4 chronic kidney disease, or unspecified chronic kidney disease; I50.9 Heart failure, unspecified; E11.22 Type 2 diabetes mellitus with diabetic chronic kidney disease; J44.0 Chronic obstructive pulmonary disease with (acute) lower respiratory infection; J44.1 Chronic obstructive pulmonary disease with (acute) exacerbation; N18.3 Chronic kidney disease, stage 3 (moderate); E78.00 Pure hypercholesterolemia, unspecified; I25.10 Atherosclerotic heart disease of native coronary artery without angina pectoris; K21.9 Gastro-esophageal reflux disease without esophagitis; R09.02 Hypoxemia; M19.90 Unspecified osteoarthritis, unspecified site; Z66 Do not resuscitate; Z72.0 Tobacco use; Z86.73 Personal history of transient ischemic attack (TIA), and cerebral infarction without residual deficits; Z96.652 Presence of left artificial knee joint; Z91.81 History of falling
CPT/HCPCS: 71045; 76937; 80048; 80053; 81001; 83605; 83735; 83880; 84484; 85025; 85610; 87040; 87086; 87186; 87205; 93005; 94002; 94003; 94640; 94664; 96361; 96365; 96375; J2060; J2270; J2543; J2930; J3370; J7030; J7050